=== PATIENT | female | born 1995 | race Two or more races ===

== ENCOUNTER 2018-03-21 20:50 | Emergency (ER) | payer MEDICAID ==
[~2018-03-21] VITALS: Ht 167.6 cm; Wt 67.1 kg
[2018-03-21] MEDS ORDERED: ALBU8.5H8 IH (21:03)
--- NOTE | 2018-03-21 21:18 | NUR ---
Pt ambulates to ER with c/o bloody stool x 3 days & constipation. Pt was at an urgent care center & was told to come here. Pt denies abdominal pain, nausea/vomiting.
[2018-03-21 21:36] LABS: BASOPHILS # (AUTO) 0.1 K/uL (0.0-8.0); BASOPHILS % (AUTO) 0.9 % (0.0-2.0); EOSINOPHILS # (AUTO) 0.1 K/uL (0.0-0.7); EOSINOPHILS % (AUTO) 1.6 % (0.0-7.0); HEMOGLOBIN 12.2 g/dL (10.9-14.3); LYMPHOCYTES # (AUTO) 1.7 K/uL (20.0-40.0); LYMPHOCYTES % (AUTO) 20.1 % (20.5-51.5); MEAN CORPUSCULAR HEMOGLOBIN 27.5 uug (24.7-32.8); MEAN CORPUSCULAR HGB CONC 33 g/dL (32.3-35.6); MEAN CORPUSCULAR VOLUME 83.5 fL (75.5-95.3); MONOCYTES # (AUTO) 0.7 K/uL (2.0-10.0); NEUTROPHILS # (AUTO) 5.8 K/uL (1.8-8.9); NEUTROPHILS % (AUTO) 69.4 % (38.5-71.5); PLATELET COUNT (AUTO) 238 K/uL (179-408); RED BLOOD CELL COUNT(AUTO) 4.43 MIL/uL (3.63-4.92); WHITE BLOOD COUNT (AUTO) 8.3 K/uL (3.8-11.8)
[2018-03-21 21:46] LABS: *OCCULT BLOOD STOOL NEGATIVE (NEGATIVE)
[2018-03-21 22:02] LABS: CREATININE 0.7 mg/dL (0.6-1.3); POTASSIUM 4.2 mmol/L (3.5-5.1)
--- NOTE | 2018-03-21 23:09 | NUR ---
IV removed. Catheter intact and site benign. Pressure and 4x4 gauze applied to site. No bleeding noted.
--- NOTE | 2018-03-21 23:09 | NUR ---
Patient discharged to home in stable conditon. Written and verbal after care instructions given. Patient verbalizes understanding of instructions.
[2018-03-21 23:11] VITALS: BP 134/69
== END 2018-03-21 23:12 | disposition home or self-care (01) ==
LOC: ER 20:53
DX: K62.5 Hemorrhage of anus and rectum (principal); K59.00 Constipation, unspecified; K64.8 Other hemorrhoids; J45.909 Unspecified asthma, uncomplicated
CPT/HCPCS: 36415; 83605; 85025; 85651; 85730; 86850; 86900; 86901; 93005; A4663

== ENCOUNTER 2020-01-17 14:01 | Emergency (ER) | payer MEDICAID ==
[~2020-01-17] VITALS: Ht 167.6 cm; Wt 67.1 kg
[~2020-01-17 14:01] MED LIST: ALBU8.5H8 IH
--- NOTE | 2020-01-17 14:15 | NUR ---
DR Bailey at the bedside for MSE.
[2020-01-17 14:50] LABS: *BILIRUBIN,URIN NEGATIVE (NEGATIVE); *CLARITY,URINE CLEAR (CLEAR); *COLOR,URINE YELLOW (YELLOW); *KETONES,URINE NEGATIVE (NEGATIVE); *UROBILINOGEN,URINE 0.2 E.U./dl (NORMAL); LEUKOCYTE ESTERASE ,URINE TRACE (NEGATIVE); NITRITE, URINE NEGATIVE (NEGATIVE); PH,URINE 5.5 (5.0-8.0); UGLUCOSE NEGATIVE (NEGATIVE)
[2020-01-17 14:53] LABS: *BLOOD, URINE TRACE INTACT (NEGATIVE)
[2020-01-17 15:30] VITALS: BP 129/70
--- NOTE | 2020-01-17 15:32 | NUR ---
Patient discharged to home in stable condition. Written and verbal after care instructions given. Patient verbalizes understanding of instructions. Stressed follow up or return to ER for worsening s/s.
[2020-01-17 17:19] LABS: BACTERIA,URINE MODERATE /HPF (NONE SEEN); RBC,URINE 0-3 /HPF (0-3); SQUAMOUS EPITHELIAL CELL,UR FEW /HPF (NONE SEEN); WBC,URINE 0-3 /HPF (0-3)
== END 2020-01-17 15:32 | disposition home or self-care (01) ==
LOC: ER 14:01
DX: O20.0 Threatened abortion (principal); J45.909 Unspecified asthma, uncomplicated
CPT/HCPCS: 36415; 76856; 87086

== ENCOUNTER 2020-02-01 23:52 | Emergency (ER) | payer MEDICAID ==
[~2020-02-01] VITALS: Ht 170.2 cm; Wt 68.9 kg
[2020-02-02] MEDS ORDERED: IV NORMAL SALINE 1000 ML BAG IV ONE (00:15)
[2020-02-02 00:36] LABS: BASOPHILS # (AUTO) 0.1 K/uL (0.0-8.0); BASOPHILS % (AUTO) 0.8 % (0.0-2.0); EOSINOPHILS # (AUTO) 0.2 K/uL (0.0-0.7); EOSINOPHILS % (AUTO) 2.4 % (0.0-7.0); HEMATOCRIT 35.6 % (31.2-41.9); HEMOGLOBIN 11.8 g/dL (10.9-14.3); LYMPHOCYTES % (AUTO) 26.5 % (20.5-51.5); MEAN CORPUSCULAR HEMOGLOBIN 27.1 uug (24.7-32.8); MEAN CORPUSCULAR HGB CONC 33 g/dL (32.3-35.6); MEAN CORPUSCULAR VOLUME 81.6 fL (75.5-95.3); MONOCYTES # (AUTO) 0.7 K/uL (2.0-10.0); MONOCYTES % (AUTO) 9.3 % (0.0-11.0); NEUTROPHILS # (AUTO) 4.5 K/uL (1.8-8.9); PLATELET COUNT (AUTO) 273 K/uL (179-408); RED BLOOD CELL COUNT(AUTO) 4.36 MIL/uL (3.63-4.92); WHITE BLOOD COUNT (AUTO) 7.4 K/uL (3.8-11.8)
[2020-02-02 00:41] LABS: CREATININE 0.9 mg/dL (0.6-1.3); POTASSIUM 3.8 mmol/L (3.5-5.1)
[2020-02-02 00:46] LABS: BILIRUBIN,DIRECT 0.1 mg/dL (0.0-0.2); BILIRUBIN,TOTAL 0.2 mg/dL (0.2-1.0); TOTAL PROTEIN, SERUM 7.8 g/dL (6.4-8.2)
--- NOTE | 2020-02-02 02:08 | NUR ---
Patient c/o HINOJOSA and abdominal cramping. Dr Desai into eval patient.
[2020-02-02] MEDS ORDERED: ACETAMINOPHEN ES 500 MG TABLET ONE (02:12)
[2020-02-02] MEDS ORDERED: ACETAMINOPHEN ES 500 MG TABLET PO ONE (02:15)
--- NOTE | 2020-02-02 02:20 | NUR ---
Patient sleeping in room with no distress noted.
--- NOTE | 2020-02-02 02:57 | NUR ---
IV removed. Catheter intact and site benign. Pressure and 4x4 gauze applied to site. No bleeding noted.
[2020-02-02 03:08] VITALS: BP 128/77
== END 2020-02-02 03:09 | disposition home or self-care (01) ==
LOC: ER 23:56
DX: O03.9 Complete or unspecified spontaneous abortion without complication (principal); J45.909 Unspecified asthma, uncomplicated
CPT/HCPCS: 36415; 76856; 85025; 85730; 86850; 86900; 86901; A4663; A9150; J7030

== ENCOUNTER 2020-03-20 18:00 | Emergency (ER) | payer MEDICAID ==
[~2020-03-20] VITALS: Ht 167.6 cm; Wt 68.0 kg
[2020-03-20] MEDS ORDERED: IV NORMAL SALINE 1000 ML BAG IV ONE (18:15)
[2020-03-20] MEDS ORDERED: ONDANSETRON 4 MG/2 ML VIAL IV ONE (18:15)
--- NOTE | 2020-03-20 18:16 | NUR ---
AOx4, moving all extremities, c/o severe dizziness & nausea for "couple of hours now" per patient's verbalization. Her skin is warm & dry, denies vomiting or diarrhea, no chest pains, last menstrual period=2 weeks ago. Comfort & safety measures initiated.
--- NOTE | 2020-03-20 18:27 | NUR ---
Flat & sitting positions for orthostatic vital signs were done but patient is unable to tolerate standing position, MD is aware.
[2020-03-20 18:31] LABS: BASOPHILS % (AUTO) 0.7 % (0.0-2.0); EOSINOPHILS # (AUTO) 0.1 K/uL (0.0-0.7); EOSINOPHILS % (AUTO) 1.5 % (0.0-7.0); HEMATOCRIT 35.6 % (31.2-41.9); HEMOGLOBIN 11.8 g/dL (10.9-14.3); LYMPHOCYTES % (AUTO) 31.4 % (20.5-51.5); MEAN CORPUSCULAR HGB CONC 33 g/dL (32.3-35.6); MEAN CORPUSCULAR VOLUME 81.4 fL (75.5-95.3); MONOCYTES # (AUTO) 0.5 K/uL (2.0-10.0); MONOCYTES % (AUTO) 8.7 % (0.0-11.0); NEUTROPHILS # (AUTO) 3.6 K/uL (1.8-8.9); NEUTROPHILS % (AUTO) 57.7 % (38.5-71.5); PLATELET COUNT (AUTO) 254 K/uL (179-408); RED BLOOD CELL COUNT(AUTO) 4.37 MIL/uL (3.63-4.92); WHITE BLOOD COUNT (AUTO) 6.3 K/uL (3.8-11.8)
[2020-03-20 18:36] LABS: POTASSIUM 3.4 mmol/L (3.5-5.1)
[2020-03-20] MEDS ORDERED: ONDANSETRON 4 MG/2 ML VIAL ONE ×2 (18:36→18:37)
--- NOTE | 2020-03-20 19:04 | NUR ---
Still for urine specimen, hands off report given to LELIA Shearer
[2020-03-20] MEDS ORDERED: diphenhydrAMINE 50 MG/1 ML VIAL IV ONE (19:30)
[2020-03-20] MEDS ORDERED: diphenhydrAMINE 50 MG/1 ML VIAL ONE (19:34)
[2020-03-20 20:24] LABS: *URINE HCG, QUAL NEGATIVE (NEGATIVE)
--- NOTE | 2020-03-20 20:41 | NUR ---
IV removed. Catheter intact and site benign. Pressure and 4x4 gauze applied to site. No bleeding noted. Patient discharged to home in stable condition. Written and verbal after care instructions given. Patient verbalizes understanding of instructions. Stressed follow up or return to ER for worsening s/s. Patient ambulating with steady gait. NAD noted.
[2020-03-20 20:43] VITALS: BP 113/72
== END 2020-03-20 20:41 | disposition home or self-care (01) ==
LOC: ER 18:02
DX: R55 Syncope and collapse (principal); R42 Dizziness and giddiness; N92.6 Irregular menstruation, unspecified; J45.909 Unspecified asthma, uncomplicated
CPT/HCPCS: 36415; 80048; 82962; 84703; 85025; 93005; 93308; 96361; 96374; 96375; 99284; J1200; J2405 ×2; A4663

== ENCOUNTER 2020-07-31 01:45 | Emergency (ER) | payer MEDICAID ==
[~2020-07-31] VITALS: Ht 170.2 cm; Wt 68.0 kg
--- NOTE | 2020-07-31 02:09 | NUR ---
Pt is coming in for R knee pain/swelling, no signs of acute distress.
--- NOTE | 2020-07-31 02:45 | NUR ---
Dr Agrawal at bedside for MSE.
[2020-07-31] MEDS ORDERED: IBUPROFEN 600 MG TABLET PO ONE (03:00)
[2020-07-31] MEDS ORDERED: ACETAMINOPHEN 325 MG TABLET PO ONE (03:00)
[2020-07-31] MEDS ORDERED: ACETAMINOPHEN ES 500 MG TABLET ONE (03:02)
[2020-07-31] MEDS ORDERED: IBUPROFEN 600 MG TABLET ONE (03:03)
--- NOTE | 2020-07-31 03:06 | NUR ---
Pt has been cleared for DC. Patient discharged to home in stable condition. Written and verbal after care instructions given. Patient verbalizes understanding of instructions. Stressed follow up or return to ER for worsening s/s. Ambulated out of ED in steady gait.
[2020-07-31 03:07] VITALS: BP 120/70
== END 2020-07-31 03:08 | disposition home or self-care (01) ==
LOC: ER 01:49
DX: M25.461 Effusion, right knee (principal); J45.909 Unspecified asthma, uncomplicated
CPT/HCPCS: 73562; A4663; A9150

== ENCOUNTER 2020-08-16 23:48 | Emergency (ER) | payer MEDICAID ==
[~2020-08-16] VITALS: Ht 167.6 cm; Wt 67.1 kg
--- NOTE | 2020-08-17 00:21 | NUR ---
Dr. Desai at bedside for MSE.
[2020-08-17] MEDS ORDERED: KETOROLAC TROMETHAMINE 15 MG INJ IM ONE (00:45)
[2020-08-17 00:53] LABS: *URINE HCG, QUAL NEGATIVE (NEGATIVE)
[2020-08-17] MEDS ORDERED: IBUP-1955 PO (00:57)
[2020-08-17] MEDS ORDERED: KETOROLAC TROMETHAMINE 15 MG INJ ONE (01:02)
--- NOTE | 2020-08-17 01:09 | NUR ---
Patient discharged to home in stable condition. Written and verbal after care instructions given. Patient verbalizes understanding of instructions. Stressed follow up or return to ER for worsening s/s. Patient out of ER with crutches, gait training provided, no falls noted, no acute signs of distress, VSS, all belongings taken.
[2020-08-17 01:11] VITALS: BP 140/70
== END 2020-08-17 01:12 | disposition home or self-care (01) ==
LOC: ER 23:51
DX: M25.561 Pain in right knee (principal); M25.461 Effusion, right knee; J45.909 Unspecified asthma, uncomplicated; R03.0 Elevated blood-pressure reading, without diagnosis of hypertension
CPT/HCPCS: 84703; 96372; 99283; J1885; A4663